=== PATIENT | male | born 1965 | race African-American/Black ===

== ENCOUNTER 2017-06-29 14:55 | Inpatient (IN) | payer OTHER ==
[~2017-06-29] VITALS: Ht 172.7 cm; Wt 94.1 kg
[2017-06-29] MEDS ORDERED: ONDANSETRON 4 MG INJ IV STA (15:23)
[2017-06-29] MEDS ORDERED: morphine 4 MG/ML VIAL IV STA (15:23)
[2017-06-29] MEDS ORDERED: SOD CHLORIDE 0.9% 1,000 ML IV STA (15:23)
[2017-06-29] MEDS ORDERED: FURO40TA4 PO (15:49)
[2017-06-29] MEDS ORDERED: SPIR25TA PO (15:49)
[2017-06-29] MEDS ORDERED: HYDROmorphONE 1 MG/ML SYG IV STA (16:45)
[2017-06-29] MEDS ORDERED: ACETAMINOPHEN 325 MG TAB PO PRN ×2 (17:00→19:30)
[2017-06-29] MEDS ORDERED: ONDANSETRON 4 MG INJ IV PRN ×2 (17:00→19:30)
[2017-06-29 17:20] VITALS: BP 103/62; PULSE 71; RESP 18; Ht 172.7 cm; Wt 94.1 kg
--- NOTE | 2017-06-29 17:26 | ERD ---
ER Documentation Chief Complaint Chief Complaint heavy rectal bleeding w/ pain 06/10 per pt unable to seat HPI Patient is a 52-year-old male with hepatitis C and cirrhosis who presents with rectal bleeding. The patient says he has bleeding from his rectum and "feels constipated". He said that he started with this 3 days ago but it has been worsening. He passed out last night he says from the bleeding. He tried a hemorrhoid cream with no help. He has no colonoscopy as of yet. Upon review of old medical records this is the patient's first visit to the emergency department. ROS All systems reviewed and are negative except as per history of present illness. Medications Home Meds Reported Medications Spironolactone* (Aldactone*) 25 Mg Tablet, 50 MG PO BID, #60 TAB 06/29/17 Furosemide* (Furosemide*) 40 Mg Tablet, 40 MG PO BID, TAB 06/29/17 Allergies Allergies: Coded Allergies: No Known Allergy (Unverified , 06/29/17) PMhx/Soc Positive for hepatitis C and cirrhosis FmHx Family History: diabetes Physical Exam Vitals Vital Signs Date Time Temp Pulse Resp B/P Pulse Ox O2 Delivery O2 Flow Rate FiO2 06/29/17 17:06 74 18 109/66 98 Room Air 06/29/17 14:57 98.4 79 20 117/84 97 Physical Exam Const: Moderate distress secondary to pain Head: Atraumatic Eyes: Normal Conjunctiva ENT: Normal External Ears, Nose and Mouth. Neck: Full range of motion..~ No meningismus. Resp: Clear to auscultation bilaterally Cardio: Regular rate and rhythm, no murmurs Abd: Soft, non tender, non distended. Normal bowel sounds Skin: No petechiae or rashes Back: No midline or flank tenderness Ext: No cyanosis, or edema Neur: Awake and alert Rectal: No obvious hemorrhoids and no active bleeding at this time Result Diagram: 06/29/17 1530 06/29/17 1530 Results 24 hrs Laboratory Tests Test 06/29/17 15:30 White Blood Count 5.010^3/ul Red Blood Count 4.1910^6/ul Hemoglobin 13.6g/dl Hematocrit 39.5% Mean Corpuscular Volume 94.3fl Mean Corpuscular Hemoglobin 32.5pg Mean Corpuscular Hemoglobin Concent 34.4g/dl Red Cell Distribution Width 13.8% Platelet Count 5710^3/UL Mean Platelet Volume 12.9fl Neutrophils % 68.4% Lymphocytes % 17.7% Monocytes % 10.5% Eosinophils % 2.4% Basophils % 0.8% Nucleated Red Blood Cells % 0.0/100WBC Neutrophils # 3.410^3/ul Lymphocytes # 0.910^3/ul Monocytes # 0.510^3/ul Eosinophils # 0.110^3/ul Basophils # 0.010^3/ul Nucleated Red Blood Cells # 0.010^3/ul Prothrombin Time 17.7Sec Prothrombin Time Ratio 1.4 INR International Normalized Ratio 1.45 Activated Partial Thromboplast Time 39.8Sec Sodium Level 138mmol/L Potassium Level 4.9mmol/L Chloride Level 105mmol/L Carbon Dioxide Level 27mmol/L Anion Gap 11 Blood Urea Nitrogen 15mg/dl Creatinine 0.91mg/dl Glucose Level 98mg/dl Calcium Level 8.7mg/dl Total Bilirubin 1.3mg/dl Direct Bilirubin 0.00mg/dl Indirect Bilirubin 1.3mg/dl Aspartate Amino Transf (AST/SGOT) 186IU/L Alanine Aminotransferase (ALT/SGPT) 142IU/L Alkaline Phosphatase 136IU/L Troponin I < 0.012ng/ml Total Protein 7.6g/dl Albumin 3.4g/dl Globulin 4.20g/dl Albumin/Globulin Ratio 0.80 Current Medications Medications (Trade) Dose Ordered Sig/Makenna Route PRN Reason Start Time Stop Time Status Last Admin Dose Admin Sodium Chloride (NS) 1,000 ml @ 1,000 mls/hr Q1H STAT IV 06/29/17 15:23 06/29/17 16:22 DC 06/29/17 15:39 Morphine Sulfate (morphine) 4 mg ONCE STAT IV 06/29/17 15:23 06/29/17 15:24 DC 06/29/17 15:39 Ondansetron HCl (Zofran Inj) 4 mg ONCE STAT IV 06/29/17 15:23 06/29/17 15:24 DC 06/29/17 15:39 Ondansetron HCl (Zofran Inj) 4 mg BRIDGE ORDER PRN IV NAUSEA AND/OR VOMITING 06/29/17 17:00 06/30/17 16:59 Acetaminophen (Tylenol Tab) 650 mg ER BRIDGE PRN PO MILD PAIN/FEVER 06/29/17 17:00 06/30/17 16:59 Hydromorphone HCl (Dilaudid) 1 mg ONCE STAT IV 06/29/17 16:45 06/29/17 16:46 DC 06/29/17 16:57 Procedures/MDM Patient is a 52-year-old male who presents with rectal bleeding. I am concerned about the amount of bleeding per the patient and the fact that the patient passed out last night. The patient also has a slightly elevated INR likely due to cirrhosis. The patient will be admitted to the care of Dr. Teresa as the patient has [facility] insurance. The patient will be admitted to a medical surgical bed. His hemoglobin shows mild anemia at 13 but he does not require transfusion at this time. He would likely benefit from GI consultation and colonoscopy. Departure Diagnosis: Primary Impression: Rectal hemorrhage Condition: NERY Moncada MD Jun 29, 2017 17:26
--- NOTE | 2017-06-29 19:24 | QN ---
Documentation Comment Pt seen and examined at bedside [place] [id number]# LIANNE JORDAN MD Jun 29, 2017 19:24
--- NOTE | 2017-06-29 19:24 | QN ---
Documentation Comment Pt seen and examined at [place] [id number]# LIANNE JORDAN MD Jun 29, 2017 19:24
--- NOTE | 2017-06-29 19:24 | QN ---
Documentation Comment Pt seen and examined at bedside Job id [id number]# LIANNE JORDAN MD Jun 29, 2017 19:24
[2017-06-29] MEDS ORDERED: METOCLOPRAMIDE 10 MG INJ IV PRN (19:30)
[2017-06-29] MEDS ORDERED: NACL 0.9% 3 ML SYG IV SCH (19:30)
[2017-06-29] MEDS ORDERED: ZOLPIDEM 5 MG TAB PO PRN (19:30)
[2017-06-29] MEDS: morphine 2 MG INJ IV PRN (20:32)
[2017-06-29 21:11] VITALS: BP 88/50; RESP 18
[2017-06-29] MEDS: SPIRONOLACTONE 25 MG TAB PO SCH (21:22)
[2017-06-29 21:23] VITALS: BP 108/69
[2017-06-29] MEDS: FUROSEMIDE 40 MG TAB PO SCH (21:23)
[2017-06-29] MEDS: DOCUSATE SODIUM 100 MG CAP PO PRN (23:22)
[2017-06-29] MEDS ORDERED: POLYETHYLENE GLYCOL 17 GM PACKET PO PRN (23:30)
--- NOTE | 2017-06-30 01:53 | HP ---
DATE OF ADMISSION: 06/29/2017 REASON FOR ADMISSION: Bright red blood per rectum. HISTORY OF PRESENT ILLNESS: This is a 52-year-old male with a history of hepatitis C cirrhosis, pre sented to the emergency department complaining of rectal bleeding for past 2 to 3 days. According t o the patient, he has been feeling constipated for past few days. He said that it started 3 days ag o. On Friday, he was having some burning sensation in the rectum. On Friday, he started having s ome bright red blood per rectum associated with mixed stools. He had 3 to 4 episodes. The next day , today, he had actually blood clots. According to him, he had also passed out for a few seconds an d he was worried and came to the emergency department. He also has tried hemorrhoidal cream with no help. He has a history of cirrhosis. He is supposed to get an EGD and colonoscopy as an outpatien t on this Friday. The patient has never had any ascites, any paracentesis, never had an EGD or colo noscopies in the past, does not take any blood thinners. On arrival to ED, vital signs were stable. The patient had a hemoglobin that was 13.6. Per rectal exam in ER, did not show any hemorrhoids, no active bleed and patient was admitted for further management. PAST MEDICAL HISTORY: Hep C cirrhosis. ALLERGIES: NONE. PAST SURGICAL HISTORY: None. MEDICATIONS: Taking at home, are: 1. Lasix 80. 2. Spironolactone 100. SOCIAL HISTORY: Occasional alcohol abuse, had been sober now. No history of smoking. Has a histor y of drug use, sober. FAMILY HISTORY: Noncontributory. REVIEW OF SYSTEMS: The patient complains of bright red blood per rectum. Denies any hematemesis, a ny melena. Denies any abdominal pain. Denies any headache, any blurry vision. Denies any chest pa in, any shortness of breath. Denies any lower extremity edema. Denies any focal neurological defic it. PHYSICAL EXAMINATION: VITAL SIGNS: Temperature 97.5, heart rate is 71, respirations 18, blood pressure 103/62, saturating 96% on room air. GENERAL: The patient is awake, alert, oriented, does not appear to be in any acute distress. HEENT: Pupils equal, round, reactive to light. NECK: Supple, no JVD. HEART: Regular rate and rhythm. LUNGS: Clear to auscultate bilaterally. ABDOMEN: Soft, nontender, nondistended, positive normoactive bowel sounds. EXTREMITIES: No clubbing, cyanosis or edema. Patient has stigmata of liver disease. Per rectum, t he patient deferred, as patient had a rectal exam in the ER which did not reveal any hemorrhoids and no active bleeding. DIAGNOSTIC DATA: BMP within normal limits. Direct bilirubin 0, indirect 1.3, AST 186, ALT 142, alk nelly phosphatase 136. White count 5.0, hemoglobin 13.6, platelet count is 57. INR was 1.45. The patient was given Zofran, acetaminophen. ASSESSMENT AND PLAN: This is a 52-year-old male presenting with: 1. Lower gastrointestinal bleed with a history of a painful constipation. It could be due to anal fissure, hemorrhoids, diverticulosis; however, patient has history of cirrhosis. Need to rule out f or colonic varices. 2. Hepatis C cirrhosis. 3. Elevated AST, ALT with bilirubin and alkaline phosphatase, likely secondary to cirrhosis, thromb ocytopenia. At this period of time, the patient is admitted to med-surg. Currently, the patient is stable. We will check serial H and H. Patient will be on Protonix. We will give the patient pain control. We will call GI consultation with Dr. Caballero. Rest of the treatment will depend of the patient's hosp italization course. Dictated By: LIANNE SPAULDING/LUCIEN Conf#: [id number] DID#: [id number]
[2017-06-30 02:30] VITALS: BP 96/66; PULSE 62; RESP 18
[2017-06-30] MEDS: HYDROCODONE/APAP (5/325) TAB PO PRN ×2 (02:56→12:28)
[2017-06-30] MEDS: PANTOPRAZOLE 40 MG INJ IV SCH (05:28)
[2017-06-30] MEDS: FUROSEMIDE 40 MG TAB PO SCH (05:28)
[2017-06-30 08:10] VITALS: BP 96/63; RESP 20
[2017-06-30] MEDS: SPIRONOLACTONE 25 MG TAB PO SCH (09:51)
[2017-06-30] MEDS: morphine 2 MG INJ IV PRN ×3 (10:08→20:26)
[2017-06-30 12:22] VITALS: BP 119/81; PULSE 73
[2017-06-30] MEDS: DOCUSATE SODIUM 100 MG CAP PO PRN (12:28)
[2017-06-30 14:41] VITALS: BP 100/69; RESP 20
--- NOTE | 2017-06-30 17:47 | PN ---
Date/Time of Note Date/Time of Note DATE: 06/30/17 TIME: 17:45 Assessment/Plan VTE Prophylaxis VTE Prophylaxis Intervention: other Lines/Catheters IV C[facility]ter Type (from [facility] Saline Lock Urinary Cath still in place: No Assessment/Plan Chief Complaint/Hosp Course 1. Lower gastrointestinal bleed It could be due to anal fissure, hemorrhoids , diverticulosis; however, patient has history of cirrhosis. 2. Hepatis C cirrhosis. 3. Elevated AST, ALT with bilirubin and alkaline phosphatase, likely secondary to cirrhosis, thrombocytopenia. PLAN PER GI AND CK US ABD Problems: Subjective 24 Hr Interval Summary Respiratory: no complaints Cardiovascular: no complaints Gastrointestinal: No pain Exam/Review of Systems Vital Signs Vitals Vital Signs Date Time Temp Pulse Resp B/P Pulse Ox O2 Delivery O2 Flow Rate FiO2 06/30/17 14:41 98.0 72 20 100/69 98 06/30/17 02:30 Room Air Intake and Output 06/29/17 06/29/17 06/30/17 15:00 23:00 07:00 Intake Total 360 ml Balance 360 ml Exam Neck: supple Respiratory: clear to auscultation Cardiovascular: regular rate and rhythm Gastrointestinal: bowel sounds (+), soft Extremities: No edema Results Result Diagram: 06/30/17 0508 06/30/17 0508 Results 24 hrs Laboratory Tests Test 06/29/17 19:24 06/30/17 05:08 White Blood Count 4.3 L 5.5 # Red Blood Count 4.00 L 4.02 L Hemoglobin 12.6 L 13.0 L Hematocrit 37.8 L 38.4 L Mean Corpuscular Volume 94.5 95.5 Mean Corpuscular Hemoglobin 31.5 32.3 Mean Corpuscular Hemoglobin Concent 33.3 33.9 Red Cell Distribution Width 13.7 13.6 Platelet Count 49 L 53 L Mean Platelet Volume 11.9 H 12.9 H Neutrophils % 62.2 57.3 Lymphocytes % 24.5 25.9 Monocytes % 11.3 H 11.1 H Eosinophils % 1.6 5.1 Basophils % 0.2 0.4 Nucleated Red Blood Cells % 0.0 0.0 Neutrophils # 2.7 3.2 Lymphocytes # 1.1 1.4 Monocytes # 0.5 0.6 Eosinophils # 0.1 0.3 Basophils # 0.0 0.0 Nucleated Red Blood Cells # 0.0 0.0 Sodium Level 135 Potassium Level 4.0 Chloride Level 104 Carbon Dioxide Level 25 Anion Gap 10 Blood Urea Nitrogen 14 Creatinine 0.88 Glucose Level 89 Calcium Level 8.0 L Phosphorus Level 4.3 Magnesium Level 1.7 Medications Medications Current Medications Ondansetron HCl (Zofran Inj) 4 mg Q6H PRN IV NAUSEA AND/OR VOMITING; Start at 19:30 Metoclopramide HCl (Reglan) 10 mg Q6H PRN IV NAUSEA AND/OR VOMITING; Start at 19:30 Acetaminophen (Tylenol Tab) 650 mg Q6H PRN PO PAIN LEVEL 1-3 OR FEVER; Start 06/29/17 at 19:30 Acetaminophen/ Hydrocodone Bitart ([place] (5/325)) 1 tab Q6H PRN PO MODERATE PAIN LEVEL 4-6 Last administered on 06/30/17 12:28; Admin Dose 1 TAB; Start 06/29/17 at 19:30 Morphine Sulfate (morphine) 2 mg Q4H PRN IV SEVERE PAIN LEVEL 7-10 Last administered on 06/30/17 14:41; Admin Dose 2 MG; Start 06/29/17 at 19:30 Zolpidem Tartrate (Ambien) 5 mg QHS PRN PO SLEEP; Start 06/29/17 at 19:30 Pantoprazole (Protonix Iv) 40 mg DAILY@06 IV Last administered on 06/30/17 05 :28; Admin Dose 40 MG; Start 06/30/17 at 06:00 Docusate Sodium (Colace) 100 mg BID PRN PO CONSTIPATION Last administered on 12:28; Admin Dose 100 MG; Start 06/29/17 at 23:30 Polyethylene Glycol (Miralax) 17 gm DAILY PRN PO CONSTIPATION Last administered on 06/30/17 05:31; Admin Dose 17 GM; Start 06/29/17 at 23:30 Spironolactone (Aldactone) 50 mg DAILY PO ; Start 07/01/17 at 09:00 TRENT SERNA MD Jun 30, 2017 17:47
[2017-06-30] MEDS ORDERED: PEG/ELECTROLYTES 4L BTL PO ONE ×2 (19:00→22:00)
[2017-06-30] MEDS ORDERED: BISACODYL (EC) 5 MG TAB PO ONE ×2 (20:00→23:00)
[2017-06-30 20:39] VITALS: BP 113/66; RESP 20
[2017-07-01] VITALS (11 sets, daily range): BP systolic 89–110; BP diastolic 54–67; PULSE 62–82; RESP 16–27
--- NOTE | 2017-07-01 03:57 | CONS ---
DATE OF ADMISSION: 06/29/2017 DATE OF CONSULTATION: REFERRING PHYSICIAN: Dr. Teresa. HISTORY OF PRESENT ILLNESS: This is a 52-year-old male with a history of hepatitis C, comes to the emergency room complaining of rectal bleeding for the last 2 to 3 days. No abdominal pain, no nause a, no vomiting. No chest pain, no shortness of breath. Patient was scheduled for EGD and colonosco py by his GI this Friday, but because of the rectal bleeding he got admitted to the emergency room. He is known to have hepatitis C cirrhosis. Never had treatment for that. He has an appointment wi th his compliance clerk. ALLERGIES: NONE. PAST SURGICAL HISTORY: None. MEDICATIONS: 1. Lasix. 2. Spironolactone. SOCIAL HISTORY: Occasional alcohol. No smoking. FAMILY HISTORY: Nothing contributory. REVIEW OF SYSTEMS: Negative. PHYSICAL EXAMINATION GENERAL: Well-built, nourished, not in distress. VITAL SIGNS: Stable. HEENT: Unremarkable. NECK: Supple, no thyromegaly, no lymphadenopathy. CARDIOVASCULAR: No murmur, gallop or click. LUNGS: Clear. ABDOMEN: Benign. EXTREMITIES: No edema. CENTRAL NERVOUS SYSTEM: Grossly within normal limits. LABORATORY DATA: INR is 1.4, bilirubin is 1.3. Hematocrit is 38, stable, platelet count is 53. IMPRESSION: 1. Cirrhosis of liver from hepatitis C. 2. Rectal bleeding. 3. Thrombocytopenia. 4. Mild coagulopathy. PLAN: Proceed with colonoscopy. Discussed with the patient and has agreed for the procedure. Dictated By: KARTIK WOLF/NTS Conf#: [id number] DID#: [id number] CC: LIANNE TERESA; TRENT SERNA MD;*EndCC*
--- NOTE | 2017-07-01 03:57 | CONS ---
DATE OF ADMISSION: 06/29/2017 DATE OF CONSULTATION: REFERRING PHYSICIAN: Dr. Teresa. HISTORY OF PRESENT ILLNESS: This is a 52-year-old male with a history of hepatitis C, comes to the emergency room complaining of rectal bleeding for the last 2 to 3 days. No abdominal pain, no nause a, no vomiting. No chest pain, no shortness of breath. Patient was scheduled for EGD and colonosco py by his GI this Friday, but because of the rectal bleeding he got admitted to the emergency room. He is known to have hepatitis C cirrhosis. Never had treatment for that. 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 ALLERGIES: NONE. PAST SURGICAL HISTORY: None. MEDICATIONS: 1. Lasix. 2. Spironolactone. SOCIAL HISTORY: Occasional alcohol. No smoking. FAMILY HISTORY: Nothing contributory. REVIEW OF SYSTEMS: Negative. PHYSICAL EXAMINATION GENERAL: Well-built, nourished, not in distress. VITAL SIGNS: Stable. HEENT: Unremarkable. NECK: Supple, no thyromegaly, no lymphadenopathy. CARDIOVASCULAR: No murmur, gallop or click. LUNGS: Clear. ABDOMEN: Benign. EXTREMITIES: No edema. CENTRAL NERVOUS SYSTEM: Grossly within normal limits. LABORATORY DATA: INR is 1.4, bilirubin is 1.3. Hematocrit is 38, stable, platelet count is 53. IMPRESSION: 1. Cirrhosis of liver from hepatitis C. 2. Rectal bleeding. 3. Thrombocytopenia. 4. Mild coagulopathy. PLAN: Proceed with colonoscopy. Discussed with the patient and has agreed for the procedure. Dictated By: KARTIK WOLF/NTS Conf#: [id number] DID#: [id number] CC: LIANNE TERESA; TRENT SERNA MD;*EndCC*
--- NOTE | 2017-07-01 03:57 | CONS ---
DATE OF ADMISSION: 06/29/2017 DATE OF CONSULTATION: REFERRING PHYSICIAN: Dr. Teresa. HISTORY OF PRESENT ILLNESS: This is a 52-year-old male with a history of hepatitis C, comes to the emergency room complaining of rectal bleeding for the last 2 to 3 days. No abdominal pain, no nause a, no vomiting. No chest pain, no shortness of breath. Patient was scheduled for EGD and colonosco py by his GI this Friday, but because of the rectal bleeding he got admitted to the emergency room. He is known to have hepatitis C cirrhosis. Never had treatment for that. 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 ALLERGIES: NONE. PAST SURGICAL HISTORY: None. MEDICATIONS: 1. Lasix. 2. Spironolactone. SOCIAL HISTORY: Occasional alcohol. No smoking. FAMILY HISTORY: Nothing contributory. REVIEW OF SYSTEMS: Negative. PHYSICAL EXAMINATION GENERAL: Well-built, nourished, not in distress. VITAL SIGNS: Stable. HEENT: Unremarkable. NECK: Supple, no thyromegaly, no lymphadenopathy. CARDIOVASCULAR: No murmur, gallop or click. LUNGS: Clear. ABDOMEN: Benign. EXTREMITIES: No edema. CENTRAL NERVOUS SYSTEM: Grossly within normal limits. LABORATORY DATA: INR is 1.4, bilirubin is 1.3. Hematocrit is 38, stable, platelet count is 53. IMPRESSION: 1. Cirrhosis of liver from hepatitis C. 2. Rectal bleeding. 3. Thrombocytopenia. 4. Mild coagulopathy. PLAN: Proceed with colonoscopy. Discussed with the patient and has agreed for the procedure. Dictated By: KARTIK WOLF/NTS Conf#: [id number] DID#: [id number] CC: LIANNE TERESA; TRENT SERNA MD;*EndCC*
[2017-07-01] MEDS: PANTOPRAZOLE 40 MG INJ IV SCH (05:55)
[2017-07-01] MEDS: morphine 2 MG INJ IV PRN ×3 (06:01→16:38)
[2017-07-01] MEDS ORDERED: SPIRONOLACTONE 25 MG TAB PO SCH (09:00)
--- NOTE | 2017-07-01 09:46 | OPPN ---
Date/Time of Note Date/Time of Note DATE: 07/01/17 TIME: 09:46 Proc Note GI Procedure Date 07/01/17 Indication: diagnostic Pre-procedure Diagnosis Rectal bleeding Post-procedure Diagnosis Hemorrhoids both internal and external cause of bleeding moderate size Procedure Performed: Colonoscopy Surgeon see signature line Quality Controller none Anesthesia Type: MAC Tourniquet Time none EBL none Transfusion required none Biopsy 1: None Grafts/Implants none Tubes/Drains none Complication(s) none Disposition: PACU Procedure Description See dictated report KARTIK ULLOA MD Jul 01, 2017 09:46
--- NOTE | 2017-07-01 09:46 | OPPN ---
Date/Time of Note Date/Time of Note DATE: 07/01/17 TIME: 09:46 Proc Note GI Procedure Date 07/01/17 Indication: diagnostic Pre-procedure Diagnosis Rectal bleeding Post-procedure Diagnosis Hemorrhoids both internal and external cause of bleeding moderate size Procedure Performed: Colonoscopy Surgeon see signature line Direct Casting Operator none Anesthesia Type: MAC Tourniquet Time none EBL none Transfusion required none Biopsy 1: None Grafts/Implants none Tubes/Drains none Complication(s) none Disposition: PACU Procedure Description See dictated report KARTIK ULLOA MD Jul 01, 2017 09:46
--- NOTE | 2017-07-01 11:26 | GILP ---
DATE OF PROCEDURE: PROCEDURE: A 52-year-old male undergoing this procedure for rectal bleeding. INFORMED CONSENT: The risk of the procedure, related and unrelated complications, sedative, anesthe tic risks, alternatives discussed and informed consent was obtained. DESCRIPTION OF PROCEDURE: The patient was brought to the GI lab, sedated by Dr. Spears. After o ptimum sedation, scope was passed with much ease into rectum, advanced through sigmoid, descending, transverse colon all the way into the cecum. Cecum was filled with stool precluding the visibility by 10-20% but grossly it was normal. Rest of the colon appeared normal which was thoroughly inspect ed while coming out. Clarity was good and the preparation was good to adequate. Retroversion done, internal hemorrhoids identified. Scope was straightened out and removed with good patient toleranc e. IMPRESSION: 1. Hemorrhoids. 2. Negative all the way into the cecum. 3. Clarity was good preparation was good to adequate. PLAN: The patient needs to be on sitz bath and high fiber diet. Cause of bleeding is definitely he morrhoids. Dictated By: KARTIK WOLF/LUCIEN Conf#: [id number] DID#: [id number] CC: TRENT SERNA MD;*EndCC*
--- NOTE | 2017-07-01 14:17 | RADRPT ---
PROCEDURE: US Abdomen and Retroperitoneum. CLINICAL INDICATION: Abnormal liver function tests. TECHNIQUE: Multiple real-time longitudinal and transverse images were acquired of the patient's ab domen and retroperitoneum utilizing a curved array transducer. COMPARISON: No prior studies are available for comparison. FINDINGS: The liver is diffusely heterogeneous and has a nodular surface consistent with cirrhosis. There is n o focal hepatic lesion. Color Doppler and pulsed Doppler sonography demonstrate normal antegrade mitzi w in the portal vein. The gallbladder is normal with no stones or wall thickening. The bile ducts are normal with the common bile duct measuring 5.2 mm in diameter. The spleen is enlarged measuring 14.3 cm in length. There is no focal splenic lesion. The pancreas is partially seen and is unremarkable. There is a small amount of ascites. The right kidney measures 12.2 x 5.5 cm and the left kidney measures 12.2 x 5.7 cm. There is no renal mass. There is no hydronephrosis or calculus. The abdominal aorta is not dilated. The inferior vena cava is unremarkable. IMPRESSION: 1. Cirrhotic liver. 2. Splenomegaly. 3. Small amount of ascites. 4. Otherwise unremarkable study. RPTAT: QQ .Peter Griffin MD, MD Date Time Electronically viewed and signed by .Peter Griffin MD, on 07/01/2017 14:16 .R/
--- NOTE | 2017-07-01 16:59 | PDOCDIS ---
Discharge Instructions CONDITION Patient Condition: Stable HOME CARE INSTRUCTIONS: Special Diet: LOW CHOLESTEROL ACTIVITY: Activity Restrictions: Slowly Increase Activity FOLLOW UP/APPOINTMENTS Follow-up Plan f/u own pcp [address] parnell 2 wks TRENT SERNA MD Jul 01, 2017 16:59
[2017-07-01] MEDS ORDERED: SPIR25TA PO (17:07)
[2017-07-01] MEDS ORDERED: POLY17PO6 PO (17:07)
[2017-07-01] MEDS ORDERED: PANT40TA3 PO (17:07)
[2017-07-01] MEDS ORDERED: HYDR25SU23 PR (17:07)
[2017-07-01] MEDS ORDERED: DOCU-216 PO (17:07)
--- NOTE | 2017-07-01 17:10 | PN ---
Date/Time of Note Date/Time of Note DATE: 07/01/17 TIME: 17:09 Assessment/Plan VTE Prophylaxis VTE Prophylaxis Intervention: other Lines/Catheters IV [facility] Lock Urinary Cath still in place: No Assessment/Plan Chief Complaint/Hosp Course 1. Lower gastrointestinal bleed s/p colonoscopy positive for hemmorrhoid 2. Hepatis C cirrhosis. 3. Elevated AST, ALT with bilirubin and alkaline phosphatase, likely secondary to cirrhosis, thrombocytopenia. PLAN home per gi Problems: Subjective 24 Hr Interval Summary Respiratory: no complaints Gastrointestinal: no complaints Exam/Review of Systems Vital Signs Vitals Vital Signs Date Time Temp Pulse Resp B/P Pulse Ox O2 Delivery O2 Flow Rate FiO2 07/01/17 14:00 97.8 76 20 110/56 96 07/01/17 11:10 Room Air 07/01/17 09:39 10 Intake and Output 06/30/17 06/30/17 07/01/17 15:00 23:00 07:00 Intake Total 1280 ml 600 ml Output Total 1100 ml Balance 180 ml 600 ml Exam Neck: supple Respiratory: clear to auscultation Cardiovascular: regular rate and rhythm Gastrointestinal: soft Musculoskeletal: nl extremities to inspection Results Result Diagram: 07/01/17 0509 07/01/17 0509 Results 24 hrs Laboratory Tests Test 07/01/17 05:09 White Blood Count 3.7 #L Red Blood Count 3.70 L Hemoglobin 11.9 L Hematocrit 34.3 L Mean Corpuscular Volume 92.7 Mean Corpuscular Hemoglobin 32.2 Mean Corpuscular Hemoglobin Concent 34.7 Red Cell Distribution Width 13.4 Platelet Count 48 L Mean Platelet Volume 13.2 H Neutrophils % 54.2 Lymphocytes % 27.3 Monocytes % 12.3 H Eosinophils % 5.7 Basophils % 0.5 Nucleated Red Blood Cells % 0.0 Neutrophils # 2.0 Lymphocytes # 1.0 Monocytes # 0.5 Eosinophils # 0.2 Basophils # 0.0 Nucleated Red Blood Cells # 0.0 Sodium Level 136 Potassium Level 4.3 Chloride Level 104 Carbon Dioxide Level 29 Anion Gap 7 L Blood Urea Nitrogen 13 Creatinine 0.83 Glucose Level 95 Calcium Level 8.1 L Total Bilirubin 1.2 Direct Bilirubin 0.00 Indirect Bilirubin 1.2 H Aspartate Amino Transf (AST/SGOT) 173 H Alanine Aminotransferase (ALT/SGPT) 138 H Alkaline Phosphatase 108 Total Protein 6.6 # Albumin 2.3 #L Globulin 4.30 H Albumin/Globulin Ratio 0.53 Medications Medications Current Medications Ondansetron HCl (Zofran Inj) 4 mg Q6H PRN IV NAUSEA AND/OR VOMITING; Start at 19:30 Metoclopramide HCl (Reglan) 10 mg Q6H PRN IV NAUSEA AND/OR VOMITING; Start at 19:30 Acetaminophen (Tylenol Tab) 650 mg Q6H PRN PO PAIN LEVEL 1-3 OR FEVER; Start 06/29/17 at 19:30 Acetaminophen/ Hydrocodone Bitart ([place] (5/325)) 1 tab Q6H PRN PO MODERATE PAIN LEVEL 4-6 Last administered on 06/30/17 12:28; Admin Dose 1 TAB; Start 06/29/17 at 19:30 Morphine Sulfate (morphine) 2 mg Q4H PRN IV SEVERE PAIN LEVEL 7-10 Last administered on 07/01/17 16:38; Admin Dose 2 MG; Start 06/29/17 at 19:30 Zolpidem Tartrate (Ambien) 5 mg QHS PRN PO SLEEP; Start 06/29/17 at 19:30 Pantoprazole (Protonix Iv) 40 mg DAILY@06 IV Last administered on 07/01/17 05 :55; Admin Dose 40 MG; Start 06/30/17 at 06:00 Docusate Sodium (Colace) 100 mg BID PRN PO CONSTIPATION Last administered on 12:28; Admin Dose 100 MG; Start 06/29/17 at 23:30 Polyethylene Glycol (Miralax) 17 gm DAILY PRN PO CONSTIPATION Last administered on 06/30/17 05:31; Admin Dose 17 GM; Start 06/29/17 at 23:30 Spironolactone (Aldactone) 50 mg DAILY PO ; Start 07/01/17 at 09:00 TRENT SERNA MD Jul 01, 2017 17:10
--- NOTE | 2017-07-06 12:04 | QN ---
Documentation Comment [id number] TRENT SERNA MD Jul 06, 2017 12:04
--- NOTE | 2017-07-06 12:04 | QN ---
Documentation Comment [id number] TRENT SERNA MD Jul 06, 2017 12:04
--- NOTE | 2017-07-06 12:04 | QN ---
Documentation Comment [id number] TRENT SERNA MD Jul 06, 2017 12:04
--- NOTE | 2017-07-06 19:39 | DS ---
DATE OF ADMISSION: 06/29/2017 DATE OF DISCHARGE: 07/01/2017 HOSPITAL COURSE: The patient was admitted with diagnoses of a lower GI bleed, history of hepatitis C, cirrhosis, abnormal LFT, was seen by Dr. Caballero in consultation. Ultrasound of the abdomen was d one, shows cirrhotic liver, splenomegaly, small amount of ascites. Patient underwent colonoscopy, s hows hemorrhoids, negative all the way into the cecum. Clarity was good. Patient is stable to be d ischarged. DISCHARGE DIAGNOSES: Lower gastrointestinal bleed, anemia, cirrhosis, abnormal liver function test, status post colonoscopy consistent with hemorrhoids, hepatitis C history. DISCHARGE MEDICATIONS: Patient to continue: 1. Docusate sodium. 2. Anusol-HC cream. 3. Protonix. 4. MiraLax. 5. Aldactone. Follow with PCP and Dr. Caballero as an outpatient. Dictated By: TRENT SERNA MD BS/NTS Conf#: [id number] DID#: [id number]
== END 2017-07-01 17:52 | disposition home or self-care (01) | DRG 394 ==
LOC: E/R 14:55 → PP2 16:32
PROVIDERS: ADMIT Internal Medicine; ATTEND Internal Medicine
PROC: 0DJD8ZZ Inspection of Lower Intestinal Tract, Via Natural or Artificial Opening Endoscopic (ICD-10-PCS; principal; 2017-07-01 09:00)
DX: K64.8 Other hemorrhoids (principal); K62.5 Hemorrhage of anus and rectum; D69.59 Other secondary thrombocytopenia; K74.60 Unspecified cirrhosis of liver; B18.2 Chronic viral hepatitis C; D64.9 Anemia, unspecified; K59.00 Constipation, unspecified; K64.4 Residual hemorrhoidal skin tags
CPT/HCPCS: 36415; 76700; 80048; 80053; 82270; 83735; 84100; 84484; 85025; 85610; 85730; 86850; 86900; 86901; 93005; 96374; 96375; C9113; J1170; J2270; J2405; J7030

== ENCOUNTER 2017-11-13 15:32 | Emergency (ER) | END 2017-11-13 21:12 | disposition home or self-care (01) ==